=== PATIENT | male | born 1990 | race Caucasian/White ===

== ENCOUNTER 2019-07-28 13:52 | Emergency (ER) | payer SELFPAY ==
[~2019-07-28] VITALS: Ht 172.7 cm; Wt 84.1 kg
[2019-07-28 13:59] VITALS: TEMP 98.5
[2019-07-28 15:20] LABS: BASO # 0.1 (0.0-0.2); BASO % 0.5 % (0.0-2.0); EOS # 0.1 (0.0-0.7); EOS % 0.5 % (0-4.0); GRAN # 7.3 (1.4-6.5); HEMATOCRIT 42.8 % (42.0-52.0); HEMOGLOBIN 14.7 g/dl (13.5-18.0); LYMPH # 1.7 (1.2-3.4); LYMPH % 16.8 % (20.0-51.0); MEAN CELL VOLUME 87 fl (80.0-100.0); MEAN CORPUSCULAR HEMOGLOBIN 30 pg (27.0-31.0); MEAN CORPUSCULAR HGB CONC 34 g/dl (33.0-37.0); MEAN PLATELET VOLUME 11.6 fl (7.4-10.4); MONO % 9.9 % (1.7-9.3); PLATELET COUNT 144 K/mm3 (130-400); RED BLOOD COUNT 4.93 M/mm3 (4.20-5.60); REDCELL DISTRIBUTION WIDTH-CV 12.4 % (11.5-14.5)
[2019-07-28 15:27] LABS: ALBUMIN 4.4 gm/dL (3.5-5.0); BILIRUBIN,TOTAL 0.7 mg/dL (0.0-1.0); C-REACTIVE PROTEIN 5.3 mg/dL (0.0-0.9); CALCIUM 8.9 mg/dL (8.4-10.2); CREATININE, serum 0.86 (0.66-1.25); POTASSIUM 3.7 mmol/L (3.4-5.0); TOTAL PROTEIN 7.9 gm/dL (6.4-8.2)
[2019-07-28 15:52] LABS: COLLECTION METHOD CLEAN CATCH
[2019-07-28 17:01] LABS: URINE COLOR Yellow
[2019-07-28] MEDS ORDERED: CIPRO 500MG TA500 MG PO (17:01)
[2019-07-28] MEDS ORDERED: FLAGYL500 MG PO (17:01)
[2019-07-28 17:02] LABS: PH 7 (5-8); URINE APPEARANCE Clear; URINE BILIRUBIN Negative (NEGATIVE); URINE GLUCOSE Negative (NEGATIVE); URINE KETONE Negative (NEGATIVE); URINE PROTEIN(semi-quant) Negative (NEGATIVE)
[2019-07-28 17:03] LABS: URINE BLOOD Negative (NEGATIVE); URINE LEUKOCYTE ESTERASE Negative (NEGATIVE); URINE NITRATE Negative (NEGATIVE); URINE UROBILINOGEN Negative (NEGATIVE)
[2019-07-28 17:07] LABS: URINE RBC 0-2 /hpf
[2019-07-28 17:08] LABS: MUCOUS Present /lpf; URINE BACTERIA Rare /hpf
[2019-07-28 17:23] VITALS: BP 121/84; PULSE 66
== END 2019-07-28 17:25 | disposition home or self-care (01) ==
LOC: COL.ER 13:52
PROVIDERS: Physician Assistant
DX: K57.92 Diverticulitis of intestine, part unspecified, without perforation or abscess without bleeding (principal)
CPT/HCPCS: J2405; J7030; Q9967

== ENCOUNTER 2020-09-26 11:11 | Emergency (ER) | payer SELFPAY ==
[~2020-09-26] VITALS: Ht 172.7 cm; Wt 84.1 kg
[~2020-09-26 11:11] MED LIST: CIPRO 500MG TA500 MG PO; FLAGYL500 MG PO
[2020-09-26 11:18] VITALS: BP 122/80; TEMP 98.4
[2020-09-26 11:53] LABS: COLLECTION METHOD CLEAN CATCH
[2020-09-26 11:56] LABS: BASO # 0.1 (0.0-0.2); EOS # 0.1 (0.0-0.7); EOS % 2.3 % (0-4.0); GRAN # 3.3 (1.4-6.5); GRAN % 63.8 % (42.2-75.2); HEMATOCRIT 46.5 % (42.0-52.0); HEMOGLOBIN 15.5 g/dl (13.5-18.0); LYMPH # 1.2 (1.2-3.4); LYMPH % 23.3 % (20.0-51.0); MEAN CELL VOLUME 89 fl (80.0-100.0); MEAN CORPUSCULAR HEMOGLOBIN 30 pg (27.0-31.0); MEAN CORPUSCULAR HGB CONC 33 g/dl (33.0-37.0); MEAN PLATELET VOLUME 11.3 fl (7.4-10.4); MONO # 0.5 (0.1-0.6); MONO % 9.4 % (1.7-9.3); PLATELET COUNT 150 K/mm3 (130-400); RED BLOOD COUNT 5.24 M/mm3 (4.20-5.60); REDCELL DISTRIBUTION WIDTH-CV 11.9 % (11.5-14.5)
[2020-09-26 11:59] LABS: PH 7 (5-8); SQUAMOUS EPITHELIAL None Seen /hpf; URINE APPEARANCE Clear; URINE BACTERIA None Seen /hpf; URINE BILIRUBIN Negative (NEGATIVE); URINE BLOOD Negative (NEGATIVE); URINE COLOR Straw; URINE GLUCOSE Negative (NEGATIVE); URINE KETONE Negative (NEGATIVE); URINE LEUKOCYTE ESTERASE Negative (NEGATIVE); URINE NITRATE Negative (NEGATIVE); URINE PROTEIN(semi-quant) Negative (NEGATIVE); URINE RBC 0-2 /hpf; URINE UROBILINOGEN Negative (NEGATIVE)
[2020-09-26 12:09] LABS: ALBUMIN 4.4 gm/dL (3.5-5.0); BILIRUBIN,TOTAL 0.4 mg/dL (0.0-1.0); CALCIUM 9.3 mg/dL (8.4-10.2); CREATININE, serum 0.84 (0.66-1.25); POTASSIUM 3.8 mmol/L (3.4-5.0); TOTAL PROTEIN 8.7 gm/dL (6.4-8.2)
[2020-09-26] MEDS ORDERED: AMOXICILLIN 8751 TAB PO (12:28)
[2020-09-26 12:40] VITALS: PULSE 84
== END 2020-09-26 12:40 | disposition home or self-care (01) ==
LOC: COL.ER 11:11
PROVIDERS: Emergency Medicine
DX: K57.92 Diverticulitis of intestine, part unspecified, without perforation or abscess without bleeding (principal)